=== PATIENT | male | born 1985 ===

== ENCOUNTER 2024-07-08 10:16 | Day surgery (SDC) | payer SELFPAY ==
[2024-07-08 09:39] LABS: Anion Gap 8.1 mEq/L (5.0-15.0); Potassium 5.1 mEq/L (3.5-5.1)
[2024-07-08] MEDS ORDERED: LIDOCAINE HCL/EPINEPHRINE 20 ML MDV ONE (10:21)
[2024-07-08] MEDS ORDERED: HEPARIN 500 UNIT/5 ML SYR IV ONE (10:23)
[2024-07-08] MEDS ORDERED: Ringers Lactate 0 ML IV ONE (10:37)
[2024-07-08] MEDS ORDERED: CEFAZOLIN SODIUM 2 GM/VIAL ONE (10:37)
[2024-07-08] MEDS ORDERED: NA CHLORIDE 0.9% 500 ML ONE (11:07)
[2024-07-08] MEDS ORDERED: LIDOCAINE 1% MPF 5 ML VIAL ONE (12:05)
[2024-07-08] MEDS ORDERED: propofoL 200 MG/20 ML VIAL IV ONE (12:06)
[2024-07-08] MEDS ORDERED: ROCURONIUM 50 MG/5 ML VIAL IV ONE (12:06)
[2024-07-08] MEDS ORDERED: FENTANYL CITR 100 MCG/2 ML ONE (12:07)
[2024-07-08] MEDS ORDERED: MIDAZOLAM HCL 2 MG/2 ML INJ ONE (12:07)
[2024-07-08] MEDS ORDERED: ONDANSETRON 4 MG/2 ML VIAL ONE (12:50)
[2024-07-08] MEDS ORDERED: dexAMETHasone 4 MG/ML VIAL ONE (12:51)
--- NOTE | 2024-07-08 12:55 | EKG ---
Test Date: 2024-07-08 Test Time: 09:05:02 Proposal Writer: JUSTIN MEASUREMENT RESULTS: Intervals: Rate: 81 PA: 120 QRSD: 98 QT: 334 QTc: 387 [place]: P: 73 PA: 120 QRS: 79 T: 77 INTERPRETIVE STATEMENTS: Normal sinus rhythm Normal ECG No previous ECG available for comparison Electronically Signed On 07-08-24 12:53:49 CDT by Shawn Nicholas
--- NOTE | 2024-07-08 13:42 | P.OP ---
Preoperative diagnosis: End Stage Renal Disease Postoperative diagnosis: End Stage Renal Disease Primary procedure: Laparoscopic Placement of Peritoneal Dialysis Catheter Anesthesia: GETA + Local Estimated blood loss: <5cc Specimen: None Findings: Catheter placed in pelvis Complications: None Drain(s): Other ([place] Double Cuffed PD Catheter) Transferred to: Recovery Room Condition: Good
[2024-07-08 15:59] VITALS: BP 125/79; TEMP 96.6; O2SAT 99
--- NOTE | 2024-07-08 23:02 | OP ---
Date of Procedure: 07/08/2024 Surgeon: Armin Dodd MD, Preoperative Diagnosis: End-stage renal disease. Postoperative Diagnosis: End-stage renal disease. Procedure Performed: Laparoscopic placement of peritoneal dialysis catheter. Anesthesia: General endotracheal plus local. Estimated Blood Loss: 5 cc Specimen: None. Findings: Catheter placed in pelvis. Complications: None. Drains: Merit double-cuffed peritoneal dialysis catheter. Disposition: The patient was transferred to recovery room in good condition. Procedure In Detail: After informed consent was obtained, the patient was brought to the operating r oom, prepped in the usual sterile fashion. After adequate anesthesia was achieved, anesthetized an a kris in the left upper quadrant down to subcutaneous tissues. 5 mm 0-degree optical trocar was introd uced in the abdomen without incident or complication. Insufflation was obtained to 15 mmHg at this t taya. There was no injury to vital structures upon entry into the abdomen. I premarked the patient w ith the Merit Stencil Set for the double-cuffed Merit peritoneal dialysis catheter. Ultimately, foll owing the demarcation with the left abdominal wall exit, I was able to visualize the patient's rectus muscle, both internally and externally and therefore was able to follow the pre-stencil markings to the left of the periumbilical region. At this point, the skin was then anesthetized. I placed the i ntroducer sheath into the abdomen, aiming toward the patient's coccyx/deep pelvis region. At this po int, I performed the dilation and ultimately plastic catheter with the stripe curling medially at thi s point. It was placed deep in the pelvis. I then placed the first cuff in the anterior rectus eid th, then placed the tunneling device following the premarked stencil area, brought it out through a s eparate stab incision on the left abdominal wall. At this point, air was flowing out of this quite e asily. At this point, the end was capped and flushed with sterile saline, which was visible easily i nternally and the saline came immediately back into a basin without any significant manipulation. At this point, it was packed with heparin and capped at this point. The abdomen was then desufflated u nder direct vision without incident or complication. All skin edges were then copiously irrigated an d closed with a 4-0 Monocryl in a running fashion. Dermabond was placed over top. The patient whitney ated the procedure without incident or complication and transferred to PACU in good condition. All c ounts were correct at the end of the case. CHOLO/KATHY Voice ID: [id number] Report ID: [id number]
== END 2024-07-08 15:45 | disposition home or self-care (01) ==
LOC: OR 10:16
PROVIDERS: ATTEND Surgery
PROC: 0WHG43Z Insertion of Infusion Device into Peritoneal Cavity, Percutaneous Endoscopic Approach (ICD-10-PCS; principal; 2024-07-08 12:30)
DX: N18.6 End stage renal disease (principal); Z99.2 Dependence on renal dialysis
CPT/HCPCS: 36415; 80048; 93005; J1100; J1642; J2001; J2250; J2405; J2704; J3010; J7040; J7120